=== PATIENT | female | born 1985 | race American Indian/Alaskan Native ===

== ENCOUNTER 2016-08-22 02:48 | Emergency (ER) | payer SELFPAY ==
[2016-08-22 04:15] LABS: Basophils % (Auto) 0.5 % (0.0-1.8); Eosinophils % (Auto) 1.4 % (0.0-4.3); Hematocrit 39.4 % (30.3-42.9); Hemoglobin 13.2 gm/dl (10.1-14.3); Mean Corpuscular HGB Conc 34 % (30-34); Mean Corpuscular Hemoglobin 30 pg (28-32); Mean Corpuscular Volume 89 fl (79-97); Platelet Count 302 K/mm3 (140-440); Red Blood Count 4.42 M/mm3 (3.65-5.03); Red Cell Distribution Width 14.1 % (13.2-15.2); White Blood Count 5.4 K/mm3 (4.5-11.0)
[2016-08-22 04:38] LABS: Alanine Aminotransferase 17 units/L (7-56); Albumin/Globulin Ratio 1.2 %; Alkaline Phosphatase 68 units/L (35-129); Anion Gap 17 mmol/L; BUN/Creatinine Ratio 17.14; Blood Urea Nitrogen 12 mg/dL (7-17); Calcium 9.4 mg/dL (8.4-10.2); Carbon Dioxide 23 mmol/L (22-30); Chloride 103.7 mmol/L (98-107); Glucose 107 mg/dL (65-100); Lipase 16 units/L (13-60); Potassium 4.4 mmol/L (3.6-5.0); Sodium 139 mmol/L (137-145); Total Protein 7.3 g/dL (6.3-8.2)
[2016-08-22 04:43] LABS: Bilirubin,Total 0.3 mg/dL (0.1-1.2)
[2016-08-22 04:51] LABS: Bilirubin,Urine NEG (Negative); Blood,Urine SM (Negative); Ketones,Urine NEG (Negative); Leukocyte Esterase,Urine NEG (Negative); Mucus,Urine FEW /HPF; Nitrite,Urine NEG (Negative); Protein,Urine <15 mg/dL mg/dL (Negative); Urobilinogen,Urine < 2.0 mg/dL (<2.0)
[2016-08-22 07:36] VITALS: BP 144/87
--- NOTE | 2016-08-22 08:55 | Emergency Department Report ---
ED Female HPI - General Chief complaint: Urogenital-Female Stated complaint: BACK/VAGINAL PAIN Time Seen by Provider: 08/22/16 07:48 Source: patient Mode of arrival: Ambulatory Limitations: No Limitations - History of Present Illness Initial comments: 30-year-old female past medical history kidney stones history of Chlamydia 2004 presents with 2 weeks of intermittent foul-smelling vaginal discharge. Patient states she has very mild left buttock pain. Patient is awake alert and oriented 3 not in acute distress. Patient denies any overt fever chills nausea or vomiting. Denies any vaginal bleeding. States that she has a whitish vaginal discharge that is not improving with use of [id number] Monistat. Is currently sexually active. MD Complaint: vaginal discharge, pelvic pain, possible STD Onset/Timin -: week(s) Severity: mild Quality: burning Consistency: intermittent Are you Now?: No Associated Symptoms: vaginal discharge (patient is complaining of slightly abnormal smelling vaginal discharge) - Related Data Previous Rx's Medication Instructions Recorded Last Taken Type metroNIDAZOLE [Flagyl TAB] 500 mg PO Q12HR #14 tab 08/22/16 Unknown Rx Allergies Allergy/AdvReac Type Severity Reaction Status Date / Time No Known Allergies Allergy Unverified 01/25/13 18:16 ED Review of Systems ROS: Stated complaint: BACK/VAGINAL PAIN Other details as noted in HPI Constitutional: denies: chills, fever Eyes: denies: eye pain, eye discharge, vision change ENT: denies: ear pain, throat pain Respiratory: denies: cough, shortness of breath, wheezing Cardiovascular: denies: chest pain, palpitations Endocrine: no symptoms reported Gastrointestinal: denies: abdominal pain, nausea, diarrhea Genitourinary: discharge. denies: urgency, dysuria Musculoskeletal: denies: back pain, joint swelling, arthralgia Skin: denies: rash, lesions Neurological: denies: headache, weakness, paresthesias Psychiatric: denies: anxiety, depression Hematological/Lymphatic: denies: easy bleeding, easy bruising ED Past Medical Hx - Past Medical History Previous Medical History?: Yes Hx Hypertension: No Hx Diabetes: Yes (gestational DM) Hx Deep Vein Thrombosis: No Hx Renal Disease: No Hx Sickle Cell Disease: No Hx Seizures: No Hx Asthma: No Hx HIV: No - Surgical History Past Surgical History?: Yes Additional Surgical History: Kidney Stone - Social History Smoking Status: Current Every Day Smoker Substance Use Type: None - Medications Home Medications: Home Medications Medication Instructions Recorded Confirmed Last Taken Type metroNIDAZOLE [Flagyl TAB] 500 mg PO Q12HR #14 tab 08/22/16 Unknown Rx ED Physical Exam - General Limitations: No Limitations General appearance: alert, in no apparent distress - Head Head exam: Present: atraumatic, normocephalic - Eye Eye exam: Present: normal appearance, PERRL, EOMI - ENT ENT exam: Present: mucous membranes moist - Neck Neck exam: Present: normal inspection - Respiratory Respiratory exam: Present: normal lung sounds bilaterally. Absent: respiratory distress - Cardiovascular Cardiovascular Exam: Present: regular rate, normal rhythm. Absent: systolic murmur, diastolic murmur, rubs, gallop - GI/Abdominal GI/Abdominal exam: Present: soft, normal bowel sounds - External exam: Present: normal external exam Speculum exam: Present: vaginal discharge (thick white smelly fish odor vaginal discharge slightly yellow in appearance), cervical discharge (slight whitish yellowish cervical discharge) Bi-manual exam: Present: normal bi-manual exam (patient has no signs of PID on exam no cervical motion tenderness no adnexal tenderness on clinical exam) - Extremities Exam Extremities exam: Present: normal inspection, full ROM - Back Exam Back exam: Present: normal inspection - Neurological Exam Neurological exam: Present: alert, oriented X3, CN II-XII intact, normal gait - Psychiatric Psychiatric exam: Present: normal affect, normal mood - Skin Skin exam: Present: warm, dry, intact, normal color. Absent: rash ED Course Vital Signs 08/22/16 08/22/16 03:10 07:35 Temperature 98.2 F 98 F Pulse Rate 97 H 87 Respiratory 18 18 Rate Blood Pressure 150/104 144/87 [Right] O2 Sat by Pulse 100 99 Oximetry ED Medical Decision Making - Lab Data Result diagrams: 08/22/16 03:48 08/22/16 03:48 - Medical Decision Making A/P: Cervicitis,? Bacterial vaginosis 1-I will treat patient empirically based on symptoms and patient's history of chlamydia. 2- refer patient to [facility] 3-patient has no clinical signs of pelvic inflammatory disease 4-we'll treat patient empirically with metronidazole 500 twice a day 7 days Critical care attestation.: If time is entered above; I have spent that time in minutes in the direct care of this critically ill patient, excluding procedure time. ED Disposition Clinical Impression: Vaginosis, Cervicitis Disposition: DISCHARGED TO HOME OR SELFCARE Is pt being admited?: No Does the pt Need Aspirin: No Condition: Stable Instructions: Bacterial Vaginosis (ED), Cervicitis (ED) Prescriptions: metroNIDAZOLE [Flagyl TAB] 500 mg PO Q12HR #14 tab Referrals: [facility] [Provider Group] - 3-5 Days DARSHANA LOPEZ MD [Staff Physician] - 3-5 Days Forms: STI Treatment and Prevention, Work/School Release Form(ED) Time of Disposition: 10:02
[2016-08-22] MEDS ORDERED: XYLOCAINE 1% MPF 5 mL INFILTRATI ONE (09:58)
[2016-08-22] MEDS ORDERED: ROCEPHIN IM ONE (09:58)
[2016-08-22] MEDS ORDERED: ZITHROMAX PO ONE (09:58)
== END 2016-08-22 10:29 | disposition home or self-care (01) ==
LOC: ED 02:48
DX: N76.0 Acute vaginitis (principal); N72 Inflammatory disease of cervix uteri; F17.200 Nicotine dependence, unspecified, uncomplicated
CPT/HCPCS: 36415; 80053; 81001; 83690; 84703; 85025; 87210; 87591; 96372; 99284; J0696